=== PATIENT | female | born 1975 | race Caucasian/White ===

== ENCOUNTER 2017-06-27 13:11 | Emergency (ER) | payer OTHER ==
[~2017-06-27] VITALS: Wt 81.6 kg
[~2017-06-27 13:11] MED LIST: TYLENOL325 M1 PO; VICODIN 5/500 505 MG PO
== END 2017-06-27 14:06 | disposition home or self-care (01) ==
LOC: ED 13:11
DX: S61.210A Laceration without foreign body of right index finger without damage to nail, initial encounter (principal); Z98.51 Tubal ligation status; Z88.2 Allergy status to sulfonamides; W25.XXXA Contact with sharp glass, initial encounter; Y93.89 Activity, other specified; Y92.89 Other specified places as the place of occurrence of the external cause; Y99.9 Unspecified external cause status